=== PATIENT | female | born 1980 | race Hispanic/Latino ===

== ENCOUNTER 2023-12-27 15:52 | Emergency (ER) | payer SELFPAY ==
[2023-12-27] MEDS ORDERED: Ketorolac Tromethamine 30 MG (1 mL) VIAL ONE (16:22)
== END 2023-12-27 18:04 | disposition home or self-care (01) ==
LOC: NAV ERS 15:52
DX: S93.412A Sprain of calcaneofibular ligament of left ankle, initial encounter (principal); M79.605 Pain in left leg; M25.562 Pain in left knee; W11.XXXA Fall on and from ladder, initial encounter; Y99.0 Civilian activity done for income or pay
CPT/HCPCS: 29515; 72125; 96372; J1885